=== PATIENT | female | born 2000 | race Hispanic/Latino ===

== ENCOUNTER 2021-02-19 16:33 | Emergency (ER) | payer SELFPAY ==
[2021-02-19 16:51] VITALS: BP 122/60; PULSE 78; RESP 16; TEMP 37.2; O2SAT 100
--- NOTE | 2021-02-19 17:51 | ED.NAVMDI ---
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 . She comments she has nausea and emesis up to 2 times a day, thru [employer].. Patient states she is a non-smoker/nondrinker and her last menstrual period was 30 November . Symptoms are mild and worse in the morning. No fever, diarrhea, frequency/urgency, head?chest-abdominal pains, blood/ bleeding, discharge. Related Data Allergies Allergy/AdvReac Type Severity Reaction Status Date / Time No Known Allergies Allergy Verified 02/19/21 16:43 Review of Systems Review of Systems: General/Constitutional: No weight loss,fever Eyes: N0: Redness,discharge Ears/Nose/Throat: No: Epistaxis,ear discharge Respiratory: Denies: Hemoptysis Gastrointestinal: No Vomiting, Bleeding-rectal Skin: No Lumps, eruption Neurologic: No Focal Weakness,Sz Hematologic: Denies: Petechiae/Purpura Psychiatric: No: Suicida ideationl All Other Systems: Reviewed and Negative PMFSH Comments At time of signature, agree with nursing past medical, surgical, social and family history. There is no relevant family history pertinent to the presenting complaint Exam Narrative: General Appearance: Well appearing, No distress EYE: PERRLA, Conjunctiva clear Ears: External ear normal Nose: Normal nose Mouth/Throat: Normal appearing, Normal lips Neck: Supple Respiratory: Airway patent, No respiratory distress Cardiovascular: RRR Abdomen: Soft, Non-tender, no rebound/surgical signs, no CVAT Musculoskeletal: Full ROM Skin: Warm, Dry Neurological: A&O x3, CN II-X intact Psychiatric: Normal mood, Normal affect Course Vital Signs Vital signs: Vital Signs Temperature 98.9 F 02/19/21 16:51 Pulse Rate 78 02/19/21 16:51 Respiratory Rate 16 02/19/21 16:51 Blood Pressure 122/60 02/19/21 16:51 Pulse Oximetry 100 02/19/21 16:51 Temperature 98.9 F 02/19/21 16:51 Pulse Rate 78 02/19/21 16:51 Respiratory Rate 16 02/19/21 16:51 Blood Pressure 122/60 02/19/21 16:51 Pulse Oximetry 100 02/19/21 16:51 MDM - Nausea/Vomiting/Diarrhea Lab Data Labs: UC Bedside Result Positive Reference Range: Negative Urine Glucose Negative Reference Range: Negative Urine Bilirubin Negative Reference Range: Negative Urine Ketone Negative Reference Range: Negative Urine Specific [place] 1.020 Reference Range:1.001-1.035 Urine Blood Negative Reference Range: Negative * * Urine pH 8.5 Reference Range: 5.0-9.0 Urine Protein Negative Reference Range: Negative Urine Urobilinogen 0.2 Reference Range: 0.2-1.0 Urine Nitrate Negative Reference Range: Negative Urine Leukocyte Trace Reference Range: Negative Urine Color Yellow Reference Range: Yellow Urine Characteristics Cloudy Discharge Plan Discharge Clinical Impression: Vomiti
== END 2021-02-19 18:00 | disposition home or self-care (01) ==
PROVIDERS: Emergency Provider Emergency Medicine
DX: O21.9 Vomiting of pregnancy, unspecified (principal); Z3A.00 Weeks of gestation of pregnancy not specified
CPT/HCPCS: 81003; 81025; 87086; 87088; 99203; G0463